=== PATIENT | female | born 1975 | race Two or more races ===

== ENCOUNTER 2018-05-05 18:44 | Emergency (ER) | payer OTHER ==
[~2018-05-05] VITALS: Ht 160 cm; Wt 70.3 kg
[2018-05-05] MEDS ORDERED: LOSARTAN POTASS50 MG PO (19:30)
== END 2018-05-05 22:52 | disposition home or self-care (01) ==
LOC: ER 18:44
DX: G44.209 Tension-type headache, unspecified, not intractable (principal); I10 Essential (primary) hypertension

== ENCOUNTER 2019-07-18 15:28 | Emergency (ER) | payer OTHER ==
[~2019-07-18] VITALS: Ht 157.5 cm; Wt 65.8 kg
[~2019-07-18 15:28] MED LIST: LOSARTAN POTASS50 MG PO
== END 2019-07-18 17:20 | disposition home or self-care (01) ==
LOC: ER 15:28
DX: S13.4XXA Sprain of ligaments of cervical spine, initial encounter (principal); S30.0XXA Contusion of lower back and pelvis, initial encounter; V49.9XXA Car occupant (driver) (passenger) injured in unspecified traffic accident, initial encounter; Y93.89 Activity, other specified; Y92.488 Other paved roadways as the place of occurrence of the external cause; Y99.8 Other external cause status

== ENCOUNTER 2024-09-02 18:07 | Inpatient (IN) | payer OTHER ==
[~2024-09-02] VITALS: Ht 160 cm; Wt 62.6 kg
[2024-09-02] MEDS ORDERED: ZESTRIL2.5 MG (18:49)
--- NOTE | 2024-09-02 18:55 | NUR ---
SE RECIBE PACIENTE ALERTA Y ORIENTADA X 3 ESFERAS LA CUAL INDICA QUE DESDE ALEXANDER PRESENTA DOLOR ABDOMINAL. REFIERE SENTIR NAUSEAS.
[2024-09-02] MEDS ORDERED: 0.9 % SODIUM CHLORIDE 1,000 ML IV STA (19:23)
[2024-09-02] MEDS ORDERED: KETOROLAC TROMETHAMINE 30 MG VIAL IV ONE (19:30)
[2024-09-02 20:20] LABS: HEMATOCRIT 34.1 % (36.0-45.00); HEMOGLOBIN 11.7 g/dL (12.0-15.00); MEAN CELL VOLUME 95.5 fL (80.00-100.00); MEAN CORPUSCULAR HEMOGLOBIN 32.7 pg (27.00-32.0); MEAN CORPUSCULAR HGB CONC 34.2 g/dl (32.0-36.0); PLATELET COUNT 220 K/uL (150-450); RED BLOOD COUNT 3.57 M/uL (4.00-6.00); RED CELL DISTRIBUTION WIDTH 12.8 % (11.5-14.5)
--- NOTE | 2024-09-02 20:29 | NUR ---
SE ORIENTA PTE SOBRE TX A SEGUIR, LA MISMA REFIERE ENTENDER. SE NINA MUESTAR DE LAB, SE CANALIZA Y SE ADMINISTRA MED GÉNESIS ORDEN MEDICA
[2024-09-02 20:38] LABS: URINE APPEARANCE Clear; URINE BILIRRUBIN Negative (NEGATIVE); URINE BLOOD NHT; URINE COLOR Yellow; URINE GLUCOSE Negative (NEGATIVE); URINE KETONE 15 (NEGATIVE); URINE LEUKOCYTE Negative; URINE NITRATE Negative; URINE PROTEIN Negative (NEGATIVE); URINE UROBILINOGEN 0.2 E.U./dl
[2024-09-02 20:39] LABS: URINE BACTERIA 85.6 uL (0.0-1933); URINE EPITHELIAL CELLS 2.9 uL (0.0-38.8); URINE RBC 45.9 uL (0.0-20.8); URINE WBC 2.7 uL (0.0-23.2)
[2024-09-02 20:44] LABS: CALCIUM 9.2 mg/dL (8.5-10.1); CREATININE SERUM 0.86 mg/dL (0.55-1.02); GFR 69.84; POTASSIUM 3.73 mEq/L (3.5-5.1)
[2024-09-02] MEDS ORDERED: PIPERACILLIN/TAZOBACTAM SODIUM 3.375 GM VIAL IV ONE (21:45)
[2024-09-02] MEDS ORDERED: 0.9 % SODIUM CHLORIDE 1,000 ML IV SCH (23:00)
[2024-09-02] MEDS ORDERED: MEPERIDINE HCL/PF 25 MG/ML VIAL IM PRN (23:00)
[2024-09-02] MEDS ORDERED: MEPERIDINE HCL/PF 25 MG/ML VIAL IM ONE (23:00)
[2024-09-02] MEDS ORDERED: ONDANSETRON HCL 4 MG in 0.9 % SODIUM CHLORIDE 50 ML IV PRN (23:00)
[2024-09-02] MEDS ORDERED: ENALAPRILAT DIHYDRATE 1.25 MG/ML VIAL IV PRN (23:00)
[2024-09-02] MEDS ORDERED: ACETAMINOPHEN 500 MG GEL..CAP PO PRN (23:00)
[2024-09-02] MEDS ORDERED: KETOROLAC TROMETHAMINE 15 MG VIAL IV ONE (23:00)
[2024-09-03] MEDS ORDERED: PIPERACILLIN/TAZOBACTAM SODIUM 3.375 GM in DEXTROSE 5 % IN WATER 100 ML IV SCH
[2024-09-03 01:00] VITALS: BP 100/60; O2SAT 99
[2024-09-03 02:15] LABS: INR 1.11
[2024-09-03 03:09] VITALS: BP 112/53; O2SAT 99
[2024-09-03 08:33] VITALS: BP 94/62; O2SAT 96
[2024-09-03] MEDS ORDERED: FAMOTIDINE/PF 20 MG in 0.9 % SODIUM CHLORIDE 8 ML IV PUSH SCH (09:00)
[2024-09-03] MEDS ORDERED: PIPERACILLIN/TAZOBACTAM SODIUM 3.375 GM VIAL IV ONE (13:00)
[2024-09-03] MEDS ORDERED: SUGAMMADEX SODIUM 200 MG/2 ML VIAL IV ONE (13:15)
[2024-09-03] MEDS ORDERED: 0.9 % SODIUM CHLORIDE 1,000 ML IV SCH (14:45)
[2024-09-03 18:15] VITALS: BP 119/76; O2SAT 97
[2024-09-04] VITALS: BP 92/70; O2SAT 97
[2024-09-04 08:21] VITALS: BP 123/66; O2SAT 98
== END 2024-09-04 14:13 | disposition home or self-care (01) | DRG 399 ==
LOC: ER 18:09 → SURH 22:59
PROVIDERS: Emergency Medicine; General Practice; Surgery; ADMIT Student in an Organized Health Care Education/Training Program; ATTEND Student in an Organized Health Care Education/Training Program
PROC: BW21YZZ Computerized Tomography (CT Scan) of Abdomen and Pelvis using Other Contrast (ICD-10-PCS; 2024-09-02)
PROC: 0DTJ0ZZ Resection of Appendix, Open Approach (ICD-10-PCS; principal; 2024-09-03 13:00)
DX: K35.80 Unspecified acute appendicitis (principal); I10 Essential (primary) hypertension; D64.9 Anemia, unspecified